=== PATIENT | female | born 1935 | race Caucasian/White ===

== ENCOUNTER 2017-07-17 09:57 | Inpatient (IN) | payer MEDICARE ==
[~2017-07-17] VITALS: Ht 162.6 cm; Wt 122.2 kg
[2017-07-17 11:14] LABS: BASOPHILS % (AUTO) 0.7 % (0.0-5.0); EOSINOPHILS % (AUTO) 0.9 % (0.0-8.0); HEMATOCRIT 38.8 % (36-48); LYMPHOCYTES % (AUTO) 15.6 % (21.0-51.0); MEAN CORPUSCULAR HGB CONC 33.1 g/dL (32.0-36.0); MEAN CORPUSCULAR VOLUME 93.6 fL (79-99); MONOCYTES % (AUTO) 4.6 % (3.0-13.0); NEUTROPHILS % (AUTO) 78.2 % (40.0-77.0); PLATELET COUNT (AUTO) 208 K/uL (130-400); RED BLOOD CELL COUNT(AUTO) 4.14 MIL/uL (4.00-5.50); RED CELL DISTRIBUTION WIDTH 13.1 % (11.0-15.5); WHITE BLOOD COUNT (AUTO) 6.3 K/uL (4.8-10.8)
[2017-07-17 11:25] LABS: CARBON DIOXIDE 30 mmol/L (21-32); CHLORIDE 103 mmol/L (101-111); CREATININE 1.5 mg/dL (0.5-1.5); GLOMERULAR FILTR. RATE CALC 35 mL/min (>60); GLUCOSE,RANDOM 108 mg/dL (70-105); POTASSIUM 3.1 mmol/L (3.5-5.1); SODIUM SERUM 143 mmol/L (136-145); UREA NITROGEN, BLOOD 34 mg/dL (7-18)
[2017-07-17 11:39] LABS: ALANINE AMINOTRANSFERASE 13 U/L (12-78); ASPARTATE AMINOTRANSFERASE 11 U/L (10-37); BILIRUBIN,TOTAL 0.4 mg/dL (0.2-1.0); CREATINE KINASE MB 1.8 ng/mL (0.5-3.6); CREATINE KINASE, TOTAL 44 U/L (21-232); MYOGLOBIN 108 ng/mL (10-92); TOTAL PROTEIN, SERUM 6.9 g/dL (6.0-8.3); TROPONIN I < 0.04 ng/mL (0.00-0.06)
[2017-07-17 11:40] LABS: INR 0.94 (0.85-1.15); PARTIAL THROMBOPLASTIN TIME 30.3 SEC (26.3-35.5); PROTHROMBIN TIME 9.9 SEC (9.6-11.6)
[2017-07-17 12:12] LABS: APPEARANCE,URINE Cloudy (CLEAR); BILIRUBIN,URINE Negative (NEGATIVE); COLOR,URINE Yellow (YELLOW); GLUCOSE, URINE (UA) Negative (NEGATIVE); KETONES,URINE Negative (NEGATIVE); LEUKOCYTE ESTERASE ,URINE Moderate (NEGATIVE); NITRATE,URINE Negative (NEGATIVE); OCCULT BLOOD,URINE Moderate (NEGATIVE); PROTEIN,URINE Negative (NEGATIVE); UROBILINOGEN,URINE 0.2 mg/dL (0.2-1.0)
[2017-07-17 12:19] LABS: BACTERIA,URINE Rare /HPF (None Seen); SQUAMOUS EPITHELIAL CELL,UR Few /LPF (0-2); WBC,URINE 0-1 /HPF (0-1)
[2017-07-17] MEDS ORDERED: POTASSIUM CHLORIDE 10% ELIXIR 20 MEQ/15 ML UDCUP PO PRN (19:30)
[2017-07-17] MEDS ORDERED: DEXTROSE 50%-WATER 50 ML DISP.SYRIN IV PRN (19:30)
[2017-07-17] MEDS ORDERED: ONDANSETRON HCL 4 MG/2 ML VIAL IVP PRN (19:30)
[2017-07-17] MEDS ORDERED: GLUCAGON 1MG KIT 1 MG ML IM PRN (19:30)
[2017-07-17] MEDS ORDERED: ACETAMINOPHEN 325 MG TAB PO PRN (19:30)
[2017-07-17 20:00] VITALS: BP 112/50
[2017-07-17] MEDS ORDERED: PREG75 PO ×2 (20:25)
[2017-07-17] MEDS ORDERED: DULO60CA63 PO ×2 (20:25)
[2017-07-17] MEDS ORDERED: PANT40TA25 PO ×2 (20:25)
[2017-07-17] MEDS ORDERED: ACET-48 PO ×2 (20:25)
[2017-07-17] MEDS ORDERED: FURO40TA5 PO ×2 (20:25)
[2017-07-17] MEDS ORDERED: FOLI1TAB15 PO ×2 (20:25)
[2017-07-17] MEDS ORDERED: AEC81 PO ×2 (20:25)
[2017-07-17] MEDS ORDERED: FERS325 PO ×2 (20:25)
[2017-07-17] MEDS ORDERED: ACET250T28 PO ×2 (20:25)
[2017-07-17] MEDS ORDERED: POTA20TA12 PO ×2 (20:25)
[2017-07-17] MEDS ORDERED: ONDA4TAB10 PO ×2 (20:25)
[2017-07-17] MEDS ORDERED: CARV12.511 PO ×2 (20:25)
[2017-07-17] MEDS: SODIUM CHLORIDE 0.9% 1000ML 1,000 ML IV SCH ×2 (21:52→23:50)
[2017-07-17] MEDS: POTASSIUM CHLORIDE 20 MEQ ERTAB PO PRN (21:52)
[2017-07-17 23:51] VITALS: BP 124/52
[2017-07-18] MEDS: LIDOCAINE HCL-MPF 1% 2ML VIAL IJ PRN ×2 (00:08→03:25)
[2017-07-18] MEDS: POTASSIUM CHLORIDE 20MEQ/100ML 100 ML IV PRN ×2 (00:09→03:26)
[2017-07-18] MEDS ORDERED: HYDRALAZINE HCL 20 MG/ML VIAL IV PRN (01:15)
[2017-07-18] MEDS: IPRATROPIUM/ALBUTEROL SULFATE 3 ML SOLUTION IH SCH ×6 (02:14→22:50)
[2017-07-18] MEDS: GUAIFENESIN-DM 200/20 MG 10 ML PO PRN ×2 (03:25→21:56)
[2017-07-18 04:00] VITALS: BP 122/50
[2017-07-18 05:03] LABS: HEMATOCRIT 33.3 % (36-48); MEAN CORPUSCULAR HEMOGLOBIN 30.7 pg (27.0-33.0); MEAN CORPUSCULAR HGB CONC 32.9 g/dL (32.0-36.0); MEAN CORPUSCULAR VOLUME 93.5 fL (79-99); PLATELET COUNT (AUTO) 211 K/uL (130-400); RED BLOOD CELL COUNT(AUTO) 3.56 MIL/uL (4.00-5.50); RED CELL DISTRIBUTION WIDTH 13.3 % (11.0-15.5); WHITE BLOOD COUNT (AUTO) 7.7 K/uL (4.8-10.8)
[2017-07-18 05:13] LABS: CREATININE 1.5 mg/dL (0.5-1.5); POTASSIUM 3.6 mmol/L (3.5-5.1)
[2017-07-18 05:32] LABS: B-TYPE NATRIURETIC PEPTIDE 169 pg/mL (0-100)
[2017-07-18 07:00] VITALS: BP 132/37
[2017-07-18] MEDS ORDERED: METHYLPREDNISOLONE SOD SUCC 125MG/2ML VIAL IVP SCH (09:00)
[2017-07-18 11:00] VITALS: BP 131/52
[2017-07-18] MEDS ORDERED: ALBUTEROL SULFATE 0.083% 2.5 MG/3 ML INH IH SCH (12:00)
[2017-07-18] MEDS: LEVOFLOXACIN 250 MG/D5W 50ML 50 ML IV SCH (13:14)
[2017-07-18] MEDS: FERROUS SULFATE 325 MG TABLET.DR PO SCH ×2 (14:00→21:58)
[2017-07-18] MEDS: ACETYLCYSTEINE 20% 200MG/ML 4ML VIAL IH SCH ×2 (14:00→19:28)
[2017-07-18] MEDS ORDERED: CYCL30DR OU ×2 (15:00)
[2017-07-18] MEDS ORDERED: TRAM50TA4 PO ×2 (15:00)
[2017-07-18] MEDS ORDERED: TAMS0.4C32 PO (15:00)
[2017-07-18] MEDS ORDERED: LEVO25TA54 PO ×2 (15:00)
[2017-07-18] MEDS ORDERED: ALBU18HF7 IH ×2 (15:00)
[2017-07-18] MEDS ORDERED: POLY17PO3 PO ×2 (15:00)
[2017-07-18] MEDS ORDERED: ALBU2.5V2 IH ×2 (15:00)
[2017-07-18] MEDS ORDERED: INSU100V12 SQ ×4 (15:00)
[2017-07-18 16:00] VITALS: BP 120/45
[2017-07-18] MEDS: INSULIN HUMULIN R 100 UNIT/ML 3ML SQ SCH ×2 (16:23→21:51)
[2017-07-18] MEDS: BUDESONIDE 0.5 MG/2 ML INH IH SCH (18:00)
[2017-07-18 20:00] VITALS: BP 122/45
[2017-07-18] MEDS ORDERED: INSULIN GLARGINE 100 UNITS/ML 10 ML VIAL SQ SCH (21:00)
[2017-07-18] MEDS ORDERED: SUB PER P&T FOR ASTHMA OR COPD RECOMMENDATION IH SCH (21:00)
[2017-07-18] MEDS ORDERED: INSULIN HUMULIN R 100 UNIT/ML 3ML SQ ONE (21:53)
[2017-07-18] MEDS: CARVEDILOL 12.5 MG TABLET PO SCH (21:55)
[2017-07-18] MEDS: PREGABALIN 75 MG CAPSULE PO SCH (21:55)
[2017-07-18] MEDS: AcetaZOLAMIDE 250 MG TAB PO SCH (21:56)
[2017-07-18] MEDS: FOLIC ACID 1 MG TABLET PO SCH (21:56)
[2017-07-19] VITALS: BP 128/52
[2017-07-19] MEDS: IPRATROPIUM/ALBUTEROL SULFATE 3 ML SOLUTION IH SCH ×6 (01:54→21:59)
[2017-07-19 04:00] VITALS: BP 146/55
[2017-07-19 04:11] LABS: HEMATOCRIT 33.3 % (36-48); MEAN CORPUSCULAR HEMOGLOBIN 30.9 pg (27.0-33.0); MEAN CORPUSCULAR HGB CONC 33.1 g/dL (32.0-36.0); MEAN CORPUSCULAR VOLUME 93.5 fL (79-99); PLATELET COUNT (AUTO) 216 K/uL (130-400); RED BLOOD CELL COUNT(AUTO) 3.56 MIL/uL (4.00-5.50); RED CELL DISTRIBUTION WIDTH 13.4 % (11.0-15.5); WHITE BLOOD COUNT (AUTO) 7.5 K/uL (4.8-10.8)
[2017-07-19 04:28] LABS: CREATININE 1.3 mg/dL (0.5-1.5); POTASSIUM 3.1 mmol/L (3.5-5.1)
[2017-07-19] MEDS: INSULIN HUMULIN R 100 UNIT/ML 3ML SQ SCH ×4 (05:52→21:42)
[2017-07-19] MEDS: LIDOCAINE HCL-MPF 1% 2ML VIAL IJ PRN ×2 (05:53→08:55)
[2017-07-19] MEDS: POTASSIUM CHLORIDE 20MEQ/100ML 100 ML IV PRN ×2 (05:54→08:55)
[2017-07-19] MEDS: BUDESONIDE 0.5 MG/2 ML INH IH SCH ×3 (06:00→17:58)
[2017-07-19 07:00] VITALS: BP 157/63
[2017-07-19] MEDS ORDERED: INSULIN GLARGINE 100 UNITS/ML 10 ML VIAL SQ SCH (07:30)
[2017-07-19] MEDS: PREGABALIN 75 MG CAPSULE PO SCH ×2 (08:49→21:36)
[2017-07-19] MEDS: POTASSIUM CHLORIDE 20 MEQ ERTAB PO SCH (08:50)
[2017-07-19] MEDS: FOLIC ACID 1 MG TABLET PO SCH ×2 (08:50→21:35)
[2017-07-19] MEDS: FUROSEMIDE 40 MG TABLET PO SCH (08:50)
[2017-07-19] MEDS: DULOXETINE HCL 30 MG CAP PO SCH (08:51)
[2017-07-19] MEDS: CARVEDILOL 12.5 MG TABLET PO SCH ×2 (08:52→21:36)
[2017-07-19] MEDS: FERROUS SULFATE 325 MG TABLET.DR PO SCH ×3 (08:52→21:35)
[2017-07-19] MEDS: LEVOFLOXACIN 250 MG/D5W 50ML 50 ML IV SCH (08:53)
[2017-07-19] MEDS: ENOXAPARIN SODIUM 30 MG/0.3 ML SQ SCH (08:54)
[2017-07-19] MEDS: ACETYLCYSTEINE 20% 200MG/ML 4ML VIAL IH SCH ×3 (09:00→22:00)
[2017-07-19] MEDS: AcetaZOLAMIDE 250 MG TAB PO SCH ×2 (09:41→21:36)
[2017-07-19 11:00] VITALS: BP 138/65
[2017-07-19] MEDS: ASPIRIN 81 MG EC TAB PO SCH (11:55)
[2017-07-19 16:00] VITALS: BP 128/60
[2017-07-19 20:00] VITALS: BP 147/47
[2017-07-19] MEDS: INSULIN GLARGINE 100 UNITS/ML 10 ML VIAL SQ SCH (21:00)
[2017-07-19] MEDS: **HM**(Cyclosporine (Restasis) 1 EACH) OU SCH (21:00)
[2017-07-20] VITALS (7 sets, daily range): BP systolic 101–138; BP diastolic 41–57
[2017-07-20] MEDS: IPRATROPIUM/ALBUTEROL SULFATE 3 ML SOLUTION IH SCH ×6 (02:28→22:00)
[2017-07-20 04:41] LABS: HEMATOCRIT 32.4 % (36-48); MEAN CORPUSCULAR HEMOGLOBIN 30.7 pg (27.0-33.0); MEAN CORPUSCULAR HGB CONC 32.6 g/dL (32.0-36.0); MEAN CORPUSCULAR VOLUME 94.2 fL (79-99); PLATELET COUNT (AUTO) 198 K/uL (130-400); RED BLOOD CELL COUNT(AUTO) 3.44 MIL/uL (4.00-5.50); RED CELL DISTRIBUTION WIDTH 13.4 % (11.0-15.5); WHITE BLOOD COUNT (AUTO) 5.7 K/uL (4.8-10.8)
[2017-07-20 04:54] LABS: CREATININE 1.3 mg/dL (0.5-1.5); POTASSIUM 3.7 mmol/L (3.5-5.1)
[2017-07-20] MEDS: ACETYLCYSTEINE 20% 200MG/ML 4ML VIAL IH SCH ×3 (06:00→18:00)
[2017-07-20] MEDS: INSULIN HUMULIN R 100 UNIT/ML 3ML SQ SCH ×4 (07:01→21:00)
[2017-07-20] MEDS: INSULIN GLARGINE 100 UNITS/ML 10 ML VIAL SQ SCH ×2 (07:30→21:00)
[2017-07-20] MEDS: **HM**(Cyclosporine (Restasis) 1 EACH) OU SCH ×2 (09:00→21:00)
[2017-07-20] MEDS: ENOXAPARIN SODIUM 30 MG/0.3 ML SQ SCH (09:00)
[2017-07-20] MEDS: PREGABALIN 75 MG CAPSULE PO SCH ×2 (10:11→21:30)
[2017-07-20] MEDS: FOLIC ACID 1 MG TABLET PO SCH ×2 (10:11→21:31)
[2017-07-20] MEDS: AcetaZOLAMIDE 250 MG TAB PO SCH ×2 (10:11→21:31)
[2017-07-20] MEDS: TAMSULOSIN HCL 0.4 MG CAP.ER.24H PO SCH (10:12)
[2017-07-20] MEDS: FUROSEMIDE 40 MG TABLET PO SCH (10:12)
[2017-07-20] MEDS: POTASSIUM CHLORIDE 20 MEQ ERTAB PO SCH (10:12)
[2017-07-20] MEDS: DULOXETINE HCL 30 MG CAP PO SCH (10:12)
[2017-07-20] MEDS: CARVEDILOL 12.5 MG TABLET PO SCH ×2 (10:13→21:31)
[2017-07-20] MEDS: FERROUS SULFATE 325 MG TABLET.DR PO SCH ×3 (10:14→21:31)
[2017-07-20] MEDS: ASPIRIN 81 MG EC TAB PO SCH (10:14)
[2017-07-20] MEDS: LEVOFLOXACIN 250 MG/D5W 50ML 50 ML IV SCH (10:16)
[2017-07-20] MEDS: BUDESONIDE 0.5 MG/2 ML INH IH SCH ×2 (10:24→18:12)
[2017-07-20] MEDS: FLUCONAZOLE 100 MG TAB PO SCH (12:29)
[2017-07-20] MEDS: GUAIFENESIN-DM 200/20 MG 10 ML PO PRN (21:30)
[2017-07-21] MEDS: IPRATROPIUM/ALBUTEROL SULFATE 3 ML SOLUTION IH SCH ×6 (01:14→22:26)
[2017-07-21] MEDS: ACETYLCYSTEINE 20% 200MG/ML 4ML VIAL IH SCH ×4 (01:15→22:26)
[2017-07-21 04:00] VITALS: BP 120/51
[2017-07-21] MEDS: INSULIN HUMULIN R 100 UNIT/ML 3ML SQ SCH ×4 (06:25→21:00)
[2017-07-21] MEDS: INSULIN GLARGINE 100 UNITS/ML 10 ML VIAL SQ SCH ×2 (06:26→21:01)
[2017-07-21] MEDS: BUDESONIDE 0.5 MG/2 ML INH IH SCH ×2 (06:44→19:06)
[2017-07-21 08:00] VITALS: BP 112/44
[2017-07-21] MEDS: DULOXETINE HCL 30 MG CAP PO SCH (08:29)
[2017-07-21] MEDS: TAMSULOSIN HCL 0.4 MG CAP.ER.24H PO SCH (08:29)
[2017-07-21] MEDS: FOLIC ACID 1 MG TABLET PO SCH ×2 (08:29→20:36)
[2017-07-21] MEDS: PREGABALIN 75 MG CAPSULE PO SCH ×2 (08:29→20:36)
[2017-07-21] MEDS: ASPIRIN 81 MG EC TAB PO SCH (08:30)
[2017-07-21] MEDS: LEVOFLOXACIN 250 MG/D5W 50ML 50 ML IV SCH (08:30)
[2017-07-21] MEDS: FUROSEMIDE 40 MG TABLET PO SCH (08:30)
[2017-07-21] MEDS: FERROUS SULFATE 325 MG TABLET.DR PO SCH ×3 (08:30→20:36)
[2017-07-21] MEDS: FLUCONAZOLE 100 MG TAB PO SCH (08:30)
[2017-07-21] MEDS: **HM**(Cyclosporine (Restasis) 1 EACH) OU SCH ×2 (08:31→20:37)
[2017-07-21] MEDS: ENOXAPARIN SODIUM 30 MG/0.3 ML SQ SCH (08:31)
[2017-07-21] MEDS: POTASSIUM CHLORIDE 20 MEQ ERTAB PO SCH (08:31)
[2017-07-21] MEDS: CARVEDILOL 12.5 MG TABLET PO SCH ×2 (09:00→20:36)
[2017-07-21] MEDS: AcetaZOLAMIDE 250 MG TAB PO SCH ×2 (10:25→20:36)
[2017-07-21 12:00] VITALS: BP 112/65
[2017-07-21 16:00] VITALS: BP 133/43
[2017-07-21 19:55] VITALS: BP 123/54
[2017-07-21 23:17] VITALS: BP 121/53
[2017-07-22] MEDS: IPRATROPIUM/ALBUTEROL SULFATE 3 ML SOLUTION IH SCH ×6 (02:33→22:08)
[2017-07-22 04:29] VITALS: BP 134/50
[2017-07-22 05:32] LABS: HEMATOCRIT 31.9 % (36-48); MEAN CORPUSCULAR HEMOGLOBIN 32.1 pg (27.0-33.0); MEAN CORPUSCULAR HGB CONC 34.1 g/dL (32.0-36.0); MEAN CORPUSCULAR VOLUME 94.2 fL (79-99); PLATELET COUNT (AUTO) 213 K/uL (130-400); RED BLOOD CELL COUNT(AUTO) 3.39 MIL/uL (4.00-5.50); RED CELL DISTRIBUTION WIDTH 13.7 % (11.0-15.5)
[2017-07-22 05:36] LABS: CREATININE 1.4 mg/dL (0.5-1.5); POTASSIUM 3.4 mmol/L (3.5-5.1)
[2017-07-22] MEDS: ACETYLCYSTEINE 20% 200MG/ML 4ML VIAL IH SCH (06:00)
[2017-07-22] MEDS: INSULIN HUMULIN R 100 UNIT/ML 3ML SQ SCH ×4 (06:28→21:00)
[2017-07-22] MEDS: INSULIN GLARGINE 100 UNITS/ML 10 ML VIAL SQ SCH (06:33)
[2017-07-22] MEDS: BUDESONIDE 0.5 MG/2 ML INH IH SCH ×2 (06:42→19:22)
[2017-07-22 07:00] VITALS: BP 118/48
[2017-07-22] MEDS: **HM**(Cyclosporine (Restasis) 1 EACH) OU SCH ×2 (08:18→21:00)
[2017-07-22] MEDS: LEVOFLOXACIN 250 MG/D5W 50ML 50 ML IV SCH (08:59)
[2017-07-22] MEDS: DULOXETINE HCL 30 MG CAP PO SCH (08:59)
[2017-07-22] MEDS: ENOXAPARIN SODIUM 30 MG/0.3 ML SQ SCH ×2 (09:00→11:12)
[2017-07-22] MEDS: ASPIRIN 81 MG EC TAB PO SCH (09:01)
[2017-07-22] MEDS: FUROSEMIDE 40 MG TABLET PO SCH (09:01)
[2017-07-22] MEDS: TAMSULOSIN HCL 0.4 MG CAP.ER.24H PO SCH (09:01)
[2017-07-22] MEDS: PREGABALIN 75 MG CAPSULE PO SCH ×2 (09:01→21:31)
[2017-07-22] MEDS: FOLIC ACID 1 MG TABLET PO SCH ×2 (09:01→21:31)
[2017-07-22] MEDS: FLUCONAZOLE 100 MG TAB PO SCH (09:01)
[2017-07-22] MEDS: FERROUS SULFATE 325 MG TABLET.DR PO SCH ×3 (09:02→21:31)
[2017-07-22] MEDS: POTASSIUM CHLORIDE 20 MEQ ERTAB PO SCH (09:02)
[2017-07-22] MEDS: CARVEDILOL 12.5 MG TABLET PO SCH ×2 (09:03→21:31)
[2017-07-22] MEDS: POTASSIUM CHLORIDE 20 MEQ ERTAB PO PRN (09:08)
[2017-07-22] MEDS: GUAIFENESIN-DM 200/20 MG 10 ML PO PRN ×2 (09:18→21:31)
[2017-07-22 11:00] VITALS: BP 129/56
[2017-07-22] MEDS: AcetaZOLAMIDE 250 MG TAB PO SCH ×2 (12:37→21:31)
[2017-07-22 15:46] VITALS: BP 140/54
[2017-07-22 20:53] VITALS: BP 141/50
[2017-07-22] MEDS ORDERED: INSULIN GLARGINE 100 UNITS/ML 10 ML VIAL SQ SCH (21:00)
[2017-07-22 23:36] VITALS: BP 113/47
[2017-07-23] MEDS: IPRATROPIUM/ALBUTEROL SULFATE 3 ML SOLUTION IH SCH ×4 (02:47→14:20)
[2017-07-23 04:16] VITALS: BP 105/39
[2017-07-23] MEDS: BUDESONIDE 0.5 MG/2 ML INH IH SCH (06:05)
[2017-07-23] MEDS: INSULIN HUMULIN R 100 UNIT/ML 3ML SQ SCH ×2 (06:23→11:30)
[2017-07-23] MEDS: INSULIN GLARGINE 100 UNITS/ML 10 ML VIAL SQ SCH (06:34)
[2017-07-23 07:00] VITALS: BP 115/45
[2017-07-23] MEDS: **HM**(Cyclosporine (Restasis) 1 EACH) OU SCH (09:00)
[2017-07-23] MEDS ORDERED: TAMS0.4C32 PO ×2 (10:13)
[2017-07-23] MEDS ORDERED: GUAIFDM PO ×2 (10:13)
[2017-07-23] MEDS ORDERED: LEVO250T2 PO ×2 (10:13)
[2017-07-23] MEDS ORDERED: FLUC100T8 PO ×2 (10:13)
[2017-07-23] MEDS: LEVOFLOXACIN 250 MG/D5W 50ML 50 ML IV SCH (10:14)
[2017-07-23] MEDS: PREGABALIN 75 MG CAPSULE PO SCH (10:16)
[2017-07-23] MEDS: FUROSEMIDE 40 MG TABLET PO SCH (10:16)
[2017-07-23] MEDS: AcetaZOLAMIDE 250 MG TAB PO SCH (10:16)
[2017-07-23] MEDS: FOLIC ACID 1 MG TABLET PO SCH (10:16)
[2017-07-23] MEDS: ENOXAPARIN SODIUM 30 MG/0.3 ML SQ SCH ×2 (10:16→10:34)
[2017-07-23] MEDS: FLUCONAZOLE 100 MG TAB PO SCH (10:16)
[2017-07-23] MEDS: DULOXETINE HCL 30 MG CAP PO SCH (10:17)
[2017-07-23] MEDS: POTASSIUM CHLORIDE 20 MEQ ERTAB PO SCH (10:17)
[2017-07-23] MEDS: ASPIRIN 81 MG EC TAB PO SCH (10:17)
[2017-07-23] MEDS: CARVEDILOL 12.5 MG TABLET PO SCH (10:18)
[2017-07-23] MEDS: FERROUS SULFATE 325 MG TABLET.DR PO SCH (10:19)
[2017-07-23] MEDS: TAMSULOSIN HCL 0.4 MG CAP.ER.24H PO SCH (10:19)
[2017-07-23 11:00] VITALS: BP 116/63
== END 2017-07-23 15:35 | disposition home or self-care (01) | DRG 202 ==
LOC: EDH 09:57 → EDHIP 11:03 → UNDOADMIN 11:03 → EDHIP 16:00 → INTOOBSV 16:00 → OBSVTOIN 16:00 → 3DH 17:51
PROVIDERS: ADMIT Internal Medicine; ATTEND Internal Medicine
DX: J45.901 Unspecified asthma with (acute) exacerbation (principal); N39.0 Urinary tract infection, site not specified; E11.40 Type 2 diabetes mellitus with diabetic neuropathy, unspecified; E11.649 Type 2 diabetes mellitus with hypoglycemia without coma; E11.65 Type 2 diabetes mellitus with hyperglycemia; D64.9 Anemia, unspecified; S92.322A Displaced fracture of second metatarsal bone, left foot, initial encounter for closed fracture; I50.32 Chronic diastolic (congestive) heart failure; I27.20 Pulmonary hypertension, unspecified; I11.0 Hypertensive heart disease with heart failure; E87.6 Hypokalemia; S92.342A Displaced fracture of fourth metatarsal bone, left foot, initial encounter for closed fracture; S92.332A Displaced fracture of third metatarsal bone, left foot, initial encounter for closed fracture; E86.0 Dehydration; F32.9 Major depressive disorder, single episode, unspecified; G47.30 Sleep apnea, unspecified; H40.9 Unspecified glaucoma; K21.9 Gastro-esophageal reflux disease without esophagitis; G89.29 Other chronic pain; Z90.710 Acquired absence of both cervix and uterus; Z90.49 Acquired absence of other specified parts of digestive tract; Z79.4 Long term (current) use of insulin; Z91.81 History of falling
CPT/HCPCS: 36415; 71045; 73630; 80048; 80053; 81001; 82550; 82553; 82948; 83605; 83735; 83874; 83880; 84132; 84443; 84484; 85025; 85027; 85610; 85730; 87040; 87071; 87088; 87186; 87205; 87804; 93005; 94640; 94664; J1650; J1815; J1956; J2930; J3480; J3490; J7030; J7070; J7608

== ENCOUNTER 2017-07-25 10:58 | Emergency (ER) | payer MEDICARE ==
[~2017-07-25 10:58] MED LIST: ACET-48 PO; ACET250T28 PO; AEC81 PO; ALBU18HF7 IH; ALBU2.5V2 IH; CARV12.511 PO; CYCL30DR OU; DULO60CA63 PO; FERS325 PO; FLUC100T8 PO; FOLI1TAB15 PO; FURO40TA5 PO; GUAIFDM PO; INSU100V12 SQ; LEVO250T2 PO; LEVO25TA54 PO; ONDA4TAB10 PO; PANT40TA25 PO; POLY17PO3 PO; POTA20TA12 PO; PREG75 PO; TAMS0.4C32 PO; TRAM50TA4 PO
[2017-07-25 11:18] LABS: BASOPHILS % (AUTO) 0.9 % (0.0-5.0); EOSINOPHILS % (AUTO) 2.9 % (0.0-8.0); LYMPHOCYTES % (AUTO) 19.5 % (21.0-51.0); MEAN CORPUSCULAR HEMOGLOBIN 31.3 pg (27.0-33.0); MEAN CORPUSCULAR HGB CONC 33.1 g/dL (32.0-36.0); MEAN CORPUSCULAR VOLUME 94.4 fL (79-99); MONOCYTES % (AUTO) 4.3 % (3.0-13.0); NEUTROPHILS % (AUTO) 72.4 % (40.0-77.0); PLATELET COUNT (AUTO) 209 K/uL (130-400); RED BLOOD CELL COUNT(AUTO) 3.92 MIL/uL (4.00-5.50); RED CELL DISTRIBUTION WIDTH 13.4 % (11.0-15.5)
[2017-07-25 11:48] LABS: CREATININE 1.4 mg/dL (0.5-1.5); POTASSIUM 3.4 mmol/L (3.5-5.1)
[2017-07-25 12:04] LABS: ALBUMIN 2.8 g/dL (3.5-5.0); BILIRUBIN,TOTAL 0.2 mg/dL (0.2-1.0); TOTAL PROTEIN, SERUM 6.4 g/dL (6.0-8.3)
== END 2017-07-25 19:47 | disposition home or self-care (01) ==
LOC: EDH 10:58
DX: T38.3X1A Poisoning by insulin and oral hypoglycemic [antidiabetic] drugs, accidental (unintentional), initial encounter (principal); E11.649 Type 2 diabetes mellitus with hypoglycemia without coma; J45.909 Unspecified asthma, uncomplicated; I10 Essential (primary) hypertension; Z88.0 Allergy status to penicillin; Z88.2 Allergy status to sulfonamides; Z91.041 Radiographic dye allergy status; Z88.8 Allergy status to other drugs, medicaments and biological substances; Y92.89 Other specified places as the place of occurrence of the external cause
CPT/HCPCS: 36415; 80053; 82948; 83605; 85025

== ENCOUNTER 2022-05-26 12:00 | Emergency (ER) | payer OTHER, MEDICARE ==
[~2022-05-26] VITALS: Ht 162.6 cm; Wt 95.3 kg
[~2022-05-26 12:00] MED LIST changes: -ACET-48 PO; +ACET-49 PO; -DULO60CA63 PO; +DULO60CA64 PO; +FLUC100T12 PO; -FLUC100T8 PO; -PANT40TA25 PO; +PANT40TA55 PO; -POLY17PO3 PO; +POLY17PO52 PO; +POTA-192 PO; -POTA20TA12 PO
[2022-05-26 13:04] LABS: BASOPHILS % (AUTO) 0.9 % (0.0-5.0); EOSINOPHILS % (AUTO) 2.5 % (0.0-8.0); HEMATOCRIT 32.9 % (36-48); LYMPHOCYTES % (AUTO) 31.8 % (21.0-51.0); MEAN CORPUSCULAR HEMOGLOBIN 30.9 pg (27.0-33.0); MEAN CORPUSCULAR HGB CONC 32.8 g/dL (32.0-36.0); MONOCYTES % (AUTO) 8.7 % (3.0-13.0); NEUTROPHILS % (AUTO) 55.9 % (40.0-77.0); PLATELET COUNT (AUTO) 246 K/uL (130-400); RED CELL DISTRIBUTION WIDTH 13.7 % (11.0-15.5); WHITE BLOOD COUNT (AUTO) 5.5 K/uL (4.8-10.8)
[2022-05-26 13:16] LABS: CARBON DIOXIDE 34 mmol/L (21-32); CHLORIDE 100 mmol/L (101-111); CREATININE 0.9 mg/dL (0.5-1.5); GLOMERULAR FILTR. RATE CALC 63 mL/min (>60); GLUCOSE,RANDOM 84 mg/dL (70-105); POTASSIUM 5.3 mmol/L (3.5-5.1); SODIUM SERUM 140 mmol/L (136-145); UREA NITROGEN, BLOOD 14 mg/dL (7-18)
[2022-05-26 13:21] LABS: ALANINE AMINOTRANSFERASE 10 U/L (12-78); ALBUMIN 3.5 g/dL (3.5-5.0); ASPARTATE AMINOTRANSFERASE 17 U/L (10-37); CREATINE KINASE, TOTAL 35 U/L (21-232); TOTAL PROTEIN, SERUM 6.8 g/dL (6.0-8.3)
[2022-05-26 13:24] LABS: B-TYPE NATRIURETIC PEPTIDE 246 pg/mL (0-100)
[2022-05-26 13:46] LABS: CRP QUANTITATIVE < 2.00 mg/L (0.00-9.0)
[2022-05-26 14:55] VITALS: BP 142/82
[2022-05-26] MEDS ORDERED: ACET-2247 PO (15:11)
[2022-05-26] MEDS ORDERED: FURO-152 PO (15:11)
[2022-05-26] MEDS: FUROSEMIDE 20MG VIAL IV ONE (15:19)
[2022-05-26] MEDS: ACETAMINOPHEN 500 MG TABLET PO ONE (15:20)
== END 2022-05-26 16:09 | disposition home or self-care (01) ==
LOC: EDH 12:00
DX: D64.9 Anemia, unspecified (principal); E87.70 Fluid overload, unspecified; M17.0 Bilateral primary osteoarthritis of knee; R53.1 Weakness; M79.10 Myalgia, unspecified site; E11.9 Type 2 diabetes mellitus without complications; I10 Essential (primary) hypertension; Z88.0 Allergy status to penicillin; Z88.1 Allergy status to other antibiotic agents; Z88.2 Allergy status to sulfonamides; Z88.8 Allergy status to other drugs, medicaments and biological substances; Z79.82 Long term (current) use of aspirin
CPT/HCPCS: 99285; 96374; 71045; 82550; 83735; 84484; 80053; 83880; 85025; 86140; 36415; 73560; 93005; J1940

== ENCOUNTER 2023-07-06 12:02 | Emergency (ER) | payer OTHER, MEDICARE ==
[~2023-07-06 12:02] MED LIST changes: +ACET-2247 PO; +ACET650T9 PO; +BRIM5DRO OU; +DOXY100C5 PO; +FURO-152 PO; +GABA-529 PO; +HYDR-4060 PO; +INSU100I22 SQ; +INSU200I SQ; +LUTE40CA PO; +PANT40TA54 PO; +PROP10DR5 OP; +TAMS-1 PO
[2023-07-06] MEDS ORDERED: SOLU-MEDROL 125MG VIAL IVP ONE (12:30)
[2023-07-06 13:45] LABS: BASOPHILS # (AUTO) 0.05 K/uL (0.00-0.20); BASOPHILS % (AUTO) 0.7 % (0.0-5.0); EOSINOPHILS # (AUTO) 0.12 K/uL (0.00-0.70); EOSINOPHILS % (AUTO) 1.8 % (0.0-8.0); HEMATOCRIT 36.9 % (36-48); IMMATURE GRANULOCYTE ABSOLUTE 0.02 K/uL (0-1); LYMPHOCYTES % (AUTO) 30.2 % (21.0-51.0); MEAN CORPUSCULAR HEMOGLOBIN 30.4 pg (27.0-33.0); MEAN CORPUSCULAR HGB CONC 32.2 g/dL (32.0-36.0); MEAN CORPUSCULAR VOLUME 94.1 fL (79-99); MONOCYTES # (AUTO) 0.5 K/uL (0.1-1.0); MONOCYTES % (AUTO) 7.4 % (3.0-13.0); NEUTROPHILS % (AUTO) 59.6 % (40.0-77.0); PLATELET COUNT (AUTO) 237 K/uL (130-400); RED BLOOD CELL COUNT(AUTO) 3.92 MIL/uL (4.00-5.50); RED CELL DISTRIBUTION WIDTH 13.9 % (11.0-15.5); WHITE BLOOD COUNT (AUTO) 6.8 K/uL (4.8-10.8)
[2023-07-06 14:09] LABS: CREATININE 1.1 mg/dL (0.5-1.5); POTASSIUM 4.3 mmol/L (3.5-5.1)
[2023-07-06 14:11] LABS: ALBUMIN 3.2 g/dL (3.5-5.0); BILIRUBIN,TOTAL 0.3 mg/dL (0.2-1.0); MAGNESIUM 2.2 mg/dL (1.80-2.40); TOTAL PROTEIN, SERUM 6.5 g/dL (6.0-8.3)
[2023-07-06 14:15] LABS: B-TYPE NATRIURETIC PEPTIDE 218 pg/mL (0-100)
[2023-07-06] MEDS ORDERED: METH4TAB3 PO (15:37)
[2023-07-07 00:25] VITALS: BP 154/65; PULSE 61; RESP 16; O2SAT 96
== END 2023-07-07 00:28 | disposition home or self-care (01) ==
LOC: EDH 12:02
DX: M79.18 Myalgia, other site (principal); M51.9 Unspecified thoracic, thoracolumbar and lumbosacral intervertebral disc disorder; I10 Essential (primary) hypertension; E11.9 Type 2 diabetes mellitus without complications; Z79.82 Long term (current) use of aspirin; Z79.899 Other long term (current) drug therapy; Z98.890 Other specified postprocedural states; Z88.0 Allergy status to penicillin; Z88.2 Allergy status to sulfonamides; Z88.8 Allergy status to other drugs, medicaments and biological substances
CPT/HCPCS: 99285; 96374; 83735; 84484; 80053; 83880; 85025; 36415; J2930